=== PATIENT | female | born 1960 | race Caucasian/White ===

== ENCOUNTER 2017-10-30 06:53 | Day surgery (SDC) | payer BC ==
[~2017-10-30 06:53] MED LIST: Sodium Chloride 0.9% 10 ML Syringe FLUSH PRN
[2017-10-30] MEDS ORDERED: ceFAZolin 1 GM Vial ONE ×2 (06:55→08:32)
[2017-10-30] MEDS: Lactated Ringers 1,000 ML IV SCH ×3 (07:36→22:42)
[2017-10-30] MEDS ORDERED: Glycopyrrolate 0.2 MG/ML 5 ML MDV IV ONE (08:00)
[2017-10-30] MEDS ORDERED: ceFAZolin 1 GM in Sodium Chloride 0.9% 50 ML IV ONE (08:00)
[2017-10-30] MEDS ORDERED: Ondansetron 4 MG/2 ML SDV IVPUSH ONE (08:00)
[2017-10-30] MEDS ORDERED: Labetalol 100 MG/20 ML MDV IV ONE (08:00)
[2017-10-30] MEDS ORDERED: Rocuronium 100 MG/10 ML MDV IV ONE (08:00)
[2017-10-30] MEDS ORDERED: ePHEDrine 50 MG/ML SDV IV ONE (08:00)
[2017-10-30] MEDS ORDERED: ceFAZolin 1,000 MG VIAL IVPUSH ONE (08:00)
[2017-10-30] MEDS ORDERED: Midazolam 1 MG/ML 2 ML SDV IV ONE (08:00)
[2017-10-30] MEDS ORDERED: Neostigmine Methylsulfate 10 MG/10 ML MDV IVPUSH ONE (08:00)
[2017-10-30] MEDS ORDERED: Propofol 200 MG/20 ML SDV IV ONE ×2 (08:00)
[2017-10-30] MEDS ORDERED: Lidocaine 2% 100 MG/5 ML Syringe IVPUSH ONE (08:00)
[2017-10-30] MEDS ORDERED: Lactated Ringers 1,000 ML IV ONE (08:00)
[2017-10-30] MEDS ORDERED: Dexamethasone 4 MG/ML 5 ML MDV IVPUSH ONE (08:00)
--- NOTE | 2017-10-30 08:14 | PCM.HPR ---
H & P Addendum review - H & P Addendum Review Date of Original H & P: 10/18/17 Date Reviewed: 10/30/17 Time Reviewed: 08:00 Patient was Examined: No Changes
[2017-10-30] MEDS ORDERED: Bupivacaine 0.25% 30 ML SDV INJECT ONE (08:32)
--- NOTE | 2017-10-30 10:16 | PCM.OPNOTE ---
- General Post-Op/Procedure Note Date of Surgery/Procedure: 10/30/17 Operative Procedure(s): Lap Ventral Hernia with Adhesiolysis Findings: 3X5 in hernia defect, many adhesions Pre Op Diagnosis: Ventral Hernia Post-Op Diagnosis: Same Anesthesia Technique: General ET Tube Primary Surgeon: Gil Tello Anesthesia Provider: Adelfo Roque EBL in mLs: 50 Complications: None Condition: Good
--- NOTE | 2017-10-30 12:40 | OR ---
DATE OF OPERATION: 10/30/2017 SURGEON: Gil Tello MD PREOPERATIVE DIAGNOSIS: Ventral hernia. POSTOPERATIVE DIAGNOSIS: Ventral hernia with adhesions. PROCEDURES: Laparoscopic ventral hernia repair with adhesiolysis. SIMULATION ENGINEER: Adelfo Roque MD ANESTHESIA: General. DESCRIPTION OF PROCEDURE: The patient was brought into the operating room, where general endotracheal anesthesia was administered. The abdomen was prepped with ChloraPrep and draped sterilely. Dr. Adelfo Roque was present for assistance and was essential for assistance, retraction, exposure, and reduced the operative time. The left upper quadrant incision was made and the Visiport was placed under direct vision into the peritoneal cavity without difficulty. Pneumoperitoneum was then obtained. Adhesions were present to the entire midline. I placed a left lower quadrant 5 mm port and was able to bluntly take down some adhesions and adequately see the right lower quadrant, where another 5 mm port was placed. Dense omental adhesions were present to the anterior abdominal wall and that were taken down with blunt and sharp dissections. Oozing was present throughout the case, but no significant bleeding occurred. A loop of small bowel was seen that was carefully worked around and came down with the dissection. She has multiple hernia defects with the largest being 3 inches in diameter in the supraumbilical area. She has another smaller 1 inch adjacent one and an another one at the umbilicus. The area of hernia defect measured 3 x 5 inches. I did take down the falciform ligament superiorly that would allow good mesh placement. A 9 x 7-inch piece of mesh was chosen which would give 2 inches coverage beyond all hernia defects. This was rolled and placed in the peritoneal cavity. Sutures that had been placed on each quadrant of the mesh were then brought up to the anterior abdominal wall using the port closure device. Once the mesh was confirmed to be in good place, this was secured with Permasorb tacks circumferentially on the outer row and then a second inner row. This provided a good coverage. The old blood that was present on the omental surfaces was suctioned, and I did not see any evidence of ongoing or active bleeding. The left upper quadrant port was closed with the port closure device using #0 Vicryl. Pneumoperitoneum was then removed and the remaining ports removed. Skin was closed with #4-0 Vicryl subcuticular sutures. Benzoin and Steri-Strips were placed, and Band-Aids applied. The patient tolerated the procedure well. Estimated blood losswas 50 mL. She returned to Postanesthesia in a stable condition. /[id number] NIKI/JOYCELYN
[2017-10-30] MEDS: Acetaminophen/HYDROcodone 325-5 MG Tab PO PRN ×2 (12:47→18:46)
[2017-10-30] MEDS: Morphine 10 MG/ML Syringe IVPUSH PRN ×3 (14:23→22:41)
[2017-10-30] MEDS: Ketorolac 30 MG/ML SDV IVPUSH SCH ×2 (17:32→23:58)
[2017-10-31] MEDS: Acetaminophen/HYDROcodone 325-5 MG Tab PO PRN ×3 (04:14→11:44)
[2017-10-31] MEDS: Morphine 10 MG/ML Syringe IVPUSH PRN ×2 (05:30→07:54)
[2017-10-31] MEDS: Ketorolac 30 MG/ML SDV IVPUSH SCH ×2 (06:10→11:45)
[2017-10-31] MEDS: Lactated Ringers 1,000 ML IV SCH (06:26)
--- NOTE | 2017-10-31 09:58 | PCM.SURGPN ---
- General Info Date of Service: 10/31/17 Date of Surgery/Procedure: 10/30/17 POD#: 1 Post-Op Diagnosis: Ventral Hernia Functional Status: Reports: Pain Controlled, Tolerating Diet, Ambulating, Urinating - Review of Systems General: Reports: No Symptoms Gastrointestinal: Reports: Abdominal Pain (muscle spasm-like pains with movement ) - Patient Data Vitals - Most Recent: Last Vital Signs Temp 97.5 F 10/31/17 07:37 Pulse 71 10/31/17 00:00 Resp 16 10/31/17 07:37 BP 118/76 10/31/17 07:37 Pulse Ox 92 L 10/31/17 07:37 Weight - Most Recent: 77.111 kg I&O - Last 24 Hours: Intake & Output 10/30/17 10/31/17 10/31/17 22:59 06:59 14:59 Intake Total 870 Balance 870 Med Orders - Current: Current Medications Hydrocodone Bitart/Acetaminophen ([place] 325-5 Mg) 1 tab PO Q4H PRN PRN Reason: Pain Last Admin: 10/31/17 07:54 Dose: 1 tab Lactated Ringer's (Ringers, Lactated) 1,000 mls @ 125 mls/hr IV ASDIRECTED CHLOÉ Last Admin: 10/31/17 06:26 Dose: 125 mls/hr Ketorolac Tromethamine (Toradol) 30 mg IVPUSH Q6H [facility] Stop: 11/04/17 16:56 Last Admin: 10/31/17 06:10 Dose: 30 mg Morphine Sulfate (Morphine) 1 mg IVPUSH Q1H PRN PRN Reason: Abdominal Pain Last Admin: 10/31/17 07:54 Dose: 1 mg Sodium Chloride (Saline Flush) 10 ml FLUSH ASDIRECTED PRN PRN Reason: Keep Vein Open Discontinued Medications Bupivacaine HCl (Marcaine 0.25%) 10 ml INJECT .STK-MED ONE Stop: 10/30/17 08:33 Last Admin: 10/30/17 08:32 Dose: 10 ml Cefazolin Sodium (Ancef) 1,000 mg IVPUSH ONETIME ONE Stop: 10/30/17 08:01 Last Admin: 10/30/17 08:02 Dose: 1,000 mg Cefazolin Sodium (Ancef) Confirm Administered Dose 1 gm .ROUTE .STK-MED ONE Stop: 10/30/17 06:56 Last Admin: 10/30/17 07:50 Dose: Not Given Cefazolin Sodium (Ancef) 1 gm .XX .STK-MED ONE Stop: 10/30/17 08:33 Last Admin: 10/30/17 08:32 Dose: 1 gm - Exam Wound/Incisions: Healing Well GI/Abdominal Exam: Soft - Problem List Review Problem List Initiated/Reviewed/Updated: Yes - My Orders Last 24 Hours: Active Orders 24 hr Category Date Time Status Ready for Discharge [RC] PER UNIT ROUTINE Care 10/30/17 10:19 Active Full Liquid Diet [DIET] Diet 10/31/17 Breakfast Ordered Acetaminophen/HYDROcodone [[place] 325-5 MG] Med 10/30/17 10:20 Active 1 tab PO Q4H PRN Ketorolac [Toradol] Med 10/30/17 18:00 Active 30 mg IVPUSH Q6H Morphine Med 10/30/17 10:20 Active 1 mg IVPUSH Q1H PRN Medication Orders Hydrocodone Bitart/Acetaminophen ([place] 325-5 Mg) 1 tab PO Q4H PRN PRN Reason: Pain Last Admin: 10/31/17 07:54 Dose: 1 tab Admin: 10/31/17 04:14 Dose: 1 tab Admin: 10/30/17 18:46 Dose: 1 tab Admin: 10/30/17 12:47 Dose: 1 tab Lactated Ringer's (Ringers, Lactated) 1,000 mls @ 125 mls/hr IV ASDIRECTED [facility] Last Admin: 10/31/17 06:26 Dose: 125 mls/hr Infusion: 10/31/17 06:26 Dose: 125 mls/hr Admin: 10/30/17 22:42 Dose: 125 mls/hr Infusion: 10/30/17 22:42 Dose: 125 mls/hr Admin: 10/30/17 15:20 Dose: 125 mls/hr Infusion: 10/30/17 15:20 Dose: 125 mls/hr Admin: 10/30/17 07:36 Dose: 125 mls/hr Ketorolac Tromethamine (Toradol) 30 mg IVPUSH Q6H [facility] Stop: 11/04/17 16:56 Last Admin: 10/31/17 06:10 Dose: 30 mg Admin: 10/30/17 23:58 Dose: 30 mg Admin: 10/30/17 17:32 Dose: 30 mg Morphine Sulfate (Morphine) 1 mg IVPUSH Q1H PRN PRN Reason: Abdominal Pain Last Admin: 10/31/17 07:54 Dose: 1 mg Admin: 10/31/17 05:30 Dose: 1 mg Admin: 10/30/17 22:41 Dose: 1 mg Admin: 10/30/17 20:19 Dose: 1 mg Admin: 10/30/17 14:23 Dose: 1 mg Sodium Chloride (Saline Flush) 10 ml FLUSH ASDIRECTED PRN PRN Reason: Keep Vein Open - Assessment Assessment (Free Text/Narrative):: Doing well POD #1 - Plan Plan (Free Text/Narrative):: Discharge to home
== END 2017-10-31 13:00 | disposition home or self-care (01) ==
LOC: FB.SDS 06:53 → FB.MS 10:00 → FB.SDS 10-31 13:00
PROVIDERS: ATTEND Surgery
DX: K43.9 Ventral hernia without obstruction or gangrene (principal); Z79.899 Other long term (current) drug therapy
CPT/HCPCS: 49652; A9270; C1781; J0690; J1885; J2270; J3490; J7120; J0131; J1100; J2250; J2405; J2704; J2710